=== PATIENT | female | born 1970 | race Caucasian/White ===

== ENCOUNTER 2017-02-24 12:00 | Emergency (ER) | payer BC ==
[2017-02-24] MEDS ORDERED: TETRACAINE 0.5% OU ONE (13:15)
[2017-02-24] MEDS ORDERED: FUL-GLO OP ONE (13:29)
[2017-02-24] MEDS ORDERED: MOTRIN PO ONE (13:29)
--- NOTE | 2017-02-24 14:21 | Emergency Department Report ---
ED Eye Problem HPI - General Chief complaint: Eye Problems Stated complaint: GLUE GOT INTO TO BOTH EYES, RED Time Seen by Provider: 02/24/17 13:07 Source: patient Mode of arrival: Ambulatory Limitations: Other - History of Present Illness Initial comments: 36-year-old -[place] female presents to the ED after trying to wash eyelashes of her eye lids states the shampoo got in both eyes and now it's burning. Patient's have decreased vision but she wears glasses which she didn' t bring with her to the ER. Patient denies any nausea, vomiting, headache, change in vision. - Related Data Home Medications Medication Instructions Recorded Confirmed Last Taken Aspirin [Adult Low Dose Aspirin EC] 81 mg PO DAILY 02/24/17 02/24/17 02/23/17 Gabapentin [Neurontin] 400 mg PO TID 02/24/17 02/24/17 02/23/17 Insulin Aspart [NovoLOG Flexpen] 12 units SC TIDWM 02/24/17 02/24/17 02/23/17 Insulin Glargine [Lantus] 45 units SQ QHS 02/24/17 02/24/17 02/23/17 Latanoprost 0.005% [Xalatan 0.005%] 1 drop OU HS 02/24/17 02/24/17 02/23/17 Lisinopril [Zestril TAB] 10 mg PO QDAY 02/24/17 02/24/17 02/23/17 Metformin HCl [Glucophage] 1,000 mg PO BID 02/24/17 02/24/17 02/23/17 Pravastatin Sodium [Pravastatin] 40 mg PO HS 02/24/17 02/24/17 02/23/17 Timolol 0.5% [Timoptic] 1 drop OS QAM 02/24/17 02/24/17 02/23/17 Ziprasidone [Geodon] 40 mg PO DAILY 02/24/17 02/24/17 02/23/17 clonazePAM [ Klonopin] 0.5 mg PO TID PRN 02/24/17 02/24/17 02/23/17 traMADol [Ultram 50 MG tab] 50 mg PO Q8H PRN 02/24/17 02/24/17 Unknown Previous Rx's Medication Instructions Recorded Last Taken Type Ciprofloxacin/Hydrocortisone 3 drop OT BID #1 bottle 02/24/17 Unknown Rx [Ciprofloxacin HC OTIC] Allergies Allergy/AdvReac Type Severity Reaction Status Date / Time Penicillins Allergy Anaphylaxis Verified 02/24/17 12:22 sulfamethoxazole Allergy Rash Verified 02/24/17 12:23 [From Bactrim] sumatriptan [From Imitrex] Allergy Anaphylaxis Verified 02/24/17 12:23 sumatriptan succinate Allergy Anaphylaxis Verified 02/24/17 12:23 [From Imitrex] trimethoprim [From Bactrim] Allergy Rash Verified 02/24/17 12:23 ED Review of Systems ROS: Stated complaint: GLUE GOT INTO TO BOTH EYES, RED Other details as noted in HPI Comment: All other systems reviewed and negative Eyes: eye pain Respiratory: no symptoms reported Cardiovascular: as per HPI ED Past Medical Hx - Past Medical History Previous Medical History?: Yes Hx Hypertension: Yes Hx Diabetes: Yes Hx Psychiatric Treatment: Yes Additional medical history: Glaucoma - Surgical History Past Surgical History?: Yes Additional Surgical History: cataracts 06/09/16. hysterectomy - Social History Smoking Status: Never Smoker Substance Use Type: None - Medications Home Medications: Home Medications Medication Instructions Recorded Confirmed Last Taken Type Aspirin [Adult Low Dose Aspirin EC] 81 mg PO DAILY 02/24/17 02/24/17 02/23/17 History Ciprofloxacin/Hydrocortisone 3 drop OT BID #1 bottle 02/24/17 Unknown Rx [Ciprofloxacin HC OTIC] Gabapentin [Neurontin] 400 mg PO TID 02/24/17 02/24/17 02/23/17 History Insulin Aspart [NovoLOG Flexpen] 12 units SC TIDWM 02/24/17 02/24/17 02/23/17 History Insulin Glargine [Lantus] 45 units SQ QHS 02/24/17 02/24/17 02/23/17 History Latanoprost 0.005% [Xalatan 0.005%] 1 drop OU 02/24/17 02/24/17 02/23/17 History Lisinopril [Zestril TAB] 10 mg PO QDAY 02/24/17 02/24/17 02/23/17 History Metformin HCl [Glucophage] 1,000 mg PO BID 02/24/17 02/24/17 02/23/17 History Pravastatin Sodium [Pravastatin] 40 mg PO HS 02/24/17 02/24/17 02/23/17 History Timolol 0.5% [Timoptic] 1 drop OS QAM 02/24/17 02/24/17 02/23/17 History Ziprasidone [Geodon] 40 mg PO DAILY 02/24/17 02/24/17 02/23/17 History clonazePAM [ Klonopin] 0.5 mg PO TID PRN 02/24/17 02/24/17 02/23/17 History traMADol [Ultram 50 MG tab] 50 mg PO Q8H PRN 02/24/17 02/24/17 Unknown History ED Physical Exam - General Limitations: No Limitations, Other General appearance: alert - Head Head exam: Present: atraumatic - Eye Eye exam: Present: conjunctival injection - ENT ENT exam: Present: normal exam - Neck Neck exam: Present: normal inspection - Respiratory Respiratory exam: Present: normal lung sounds bilaterally - Cardiovascular Cardiovascular Exam: Present: regular rate, normal rhythm - GI/Abdominal GI/Abdominal exam: Present: soft, normal bowel sounds - Skin Skin exam: Present: warm ED Course Vital Signs 02/24/17 02/24/17 12:23 13:38 Temperature 98.5 F Pulse Rate 107 H Respiratory 16 18 Rate Blood Pressure 168/97 O2 Sat by Pulse 98 Oximetry - Reevaluation(s) Reevaluation #1: 02/24/17 14:23 Eyes clean, flushed by SAMINA Hogue Gallardo lamp examination did not show any abrasion. Back to baseline we will DC home with antibiotics and follow-up with ophthalmology. Critical care attestation.: If time is entered above; I have spent that time in minutes in the direct care of this critically ill patient, excluding procedure time. ED Disposition Clinical Impression: Chemical conjunctivitis of both eyes Disposition: DC-01 TO HOME OR SELFCARE Is pt being admited?: No Does the pt Need Aspirin: No Condition: Stable Prescriptions: Ciprofloxacin/Hydrocortisone [Ciprofloxacin HC OTIC] 3 drop OT BID #1 bottle Referrals: PRIMARY CARE, [Primary Care Provider] - 3-5 Days HEIDE HOWARD MD [Staff Physician] - 3-5 Days
[2017-02-24 15:03] VITALS: BP 155/71
== END 2017-02-24 15:06 | disposition home or self-care (01) ==
LOC: ED 12:00
DX: H10.213 Acute toxic conjunctivitis, bilateral (principal); I10 Essential (primary) hypertension; E11.9 Type 2 diabetes mellitus without complications; H40.9 Unspecified glaucoma; Z88.0 Allergy status to penicillin; Z88.2 Allergy status to sulfonamides; Z79.82 Long term (current) use of aspirin
CPT/HCPCS: 99283

== ENCOUNTER 2017-04-18 10:00 | Emergency (ER) | payer BC ==
[2017-04-18 10:14] VITALS: BP 174/80
--- NOTE | 2017-04-18 10:14 | Emergency Department Report ---
Stated Complaint: RIGHT HIP PAIN Time Seen by Provider: 04/18/17 10:10 - HPI History of Present Illness: PT c/o R hip pain x 3 days. PT denies injury. PT with difficulty walking. - ROS Review of Systems: + arthralgia - rash - fever - Exam Physical Exam: PT is alert, flat affect ambulatory with limp in triage MSE screening note: Focused history and physical exam performed. Due to findings the following was ordered: plain films ED Disposition for MSE Condition: Stable
[2017-04-18] MEDS ORDERED: TORADOL IM ONE (10:34)
--- NOTE | 2017-04-18 10:37 | Emergency Department Report ---
ED Lower Extremity HPI - General Chief Complaint: Extremity Problem,Nontraumatic Stated Complaint: RIGHT HIP PAIN Time Seen by Provider: 04/18/17 10:10 Source: patient Mode of arrival: Ambulatory Limitations: No Limitations - History of Present Illness Initial Comments: Pt reports atraumatic R hip pain x 4 days. Denies fever, numbness, weakness, low back pain. Also reports a sore to her nose that has spread. MD Complaint: hip injury -: Gradual, days(s) (4) Injury: Hip: Right Type of Injury: other (none) Severity: moderate Severity scale (0 -10): 7 Improves With: rest Worsens With: movement Associated Symptoms: able to partially bear weight. denies: swelling, numbness , tingling - Related Data Home Medications Medication Instructions Recorded Confirmed Last Taken Aspirin [Adult Low Dose Aspirin EC] 81 mg PO DAILY 02/24/17 02/24/17 02/23/17 Gabapentin [Neurontin] 400 mg PO TID 02/24/17 02/24/17 02/23/17 Insulin Aspart [NovoLOG Flexpen] 12 units SC TIDWM 02/24/17 02/24/17 02/23/17 Insulin Glargine [Lantus] 45 units SQ QHS 02/24/17 02/24/17 02/23/17 Latanoprost 0.005% [Xalatan 0.005%] 1 drop OU HS 02/24/17 02/24/17 02/23/17 Lisinopril [Zestril TAB] 10 mg PO QDAY 02/24/17 02/24/17 02/23/17 Metformin HCl [Glucophage] 1,000 mg PO BID 02/24/17 02/24/17 02/23/17 Pravastatin Sodium [Pravastatin] 40 mg PO HS 02/24/17 02/24/17 02/23/17 Timolol 0.5% [Timoptic] 1 drop OS QAM 02/24/17 02/24/17 02/23/17 Ziprasidone [Geodon] 40 mg PO DAILY 02/24/17 02/24/17 02/23/17 clonazePAM [ Klonopin] 0.5 mg PO TID PRN 02/24/17 02/24/17 02/23/17 traMADol [Ultram 50 MG tab] 50 mg PO Q8H PRN 02/24/17 02/24/17 Unknown Previous Rx's Medication Instructions Recorded Last Taken Type Ciprofloxacin/Hydrocortisone 3 drop OT BID #1 bottle 02/24/17 Unknown Rx [Ciprofloxacin HC OTIC] Cephalexin [Keflex] 500 mg PO Q8H #21 cap 04/18/17 Unknown Rx Cyclobenzaprine [Flexeril] 10 mg PO TID PRN #15 tablet 04/18/17 Unknown Rx Mupirocin [Bactroban 2%] 1 applic TP TID #1 tube 04/18/17 Unknown Rx Naproxen [Naprosyn] 500 mg PO BID #20 tablet 04/18/17 Unknown Rx Allergies Allergy/AdvReac Type Severity Reaction Status Date / Time Penicillins Allergy Anaphylaxis Verified 02/24/17 12:22 sulfamethoxazole Allergy Rash Verified 02/24/17 12:23 [From Bactrim] sumatriptan [From Imitrex] Allergy Anaphylaxis Verified 02/24/17 12:23 sumatriptan succinate Allergy Anaphylaxis Verified 02/24/17 12:23 [From Imitrex] trimethoprim [From Bactrim] Allergy Rash Verified 02/24/17 12:23 ED Review of Systems ROS: Stated complaint: RIGHT HIP PAIN Other details as noted in HPI Comment: All other systems reviewed and negative Constitutional: denies: chills, fever Eyes: denies: eye pain, eye discharge, vision change ENT: denies: ear pain, throat pain Respiratory: denies: cough, shortness of breath, wheezing Cardiovascular: denies: chest pain, palpitations Endocrine: no symptoms reported Gastrointestinal: denies: abdominal pain, nausea, diarrhea Genitourinary: denies: urgency, dysuria, discharge Musculoskeletal: arthralgia. denies: back pain, joint swelling Skin: denies: rash, lesions Neurological: denies: headache, weakness, paresthesias Psychiatric: denies: anxiety, depression Hematological/Lymphatic: denies: easy bleeding, easy bruising ED Past Medical Hx - Past Medical History Previous Medical History?: Yes Hx Hypertension: Yes Hx Diabetes: Yes Hx Psychiatric Treatment: Yes (MDD, Schizophrenia) Additional medical history: Glaucoma - Surgical History Past Surgical History?: Yes Additional Surgical History: cataracts 06/09/16. L ear - Social History Smoking Status: Never Smoker Substance Use Type: None - Medications Home Medications: Home Medications Medication Instructions Recorded Confirmed Last Taken Type Aspirin [Adult Low Dose Aspirin EC] 81 mg PO DAILY 02/24/17 02/24/17 02/23/17 History Ciprofloxacin/Hydrocortisone 3 drop OT BID #1 bottle 02/24/17 Unknown Rx [Ciprofloxacin HC OTIC] Gabapentin [Neurontin] 400 mg PO TID 02/24/17 02/24/17 02/23/17 History Insulin Aspart [NovoLOG Flexpen] 12 units SC TIDWM 02/24/17 02/24/17 02/23/17 History Insulin Glargine [Lantus] 45 units SQ QHS 02/24/17 02/24/17 02/23/17 History Latanoprost 0.005% [Xalatan 0.005%] 1 drop OU HS 02/24/17 02/24/17 02/23/17 History Lisinopril [Zestril TAB] 10 mg PO QDAY 02/24/17 02/24/17 02/23/17 History Metformin HCl [Glucophage] 1,000 mg PO BID 02/24/17 02/24/17 02/23/17 History Pravastatin Sodium [Pravastatin] 40 mg PO HS 02/24/17 02/24/17 02/23/17 History Timolol 0.5% [Timoptic] 1 drop OS QAM 02/24/17 02/24/17 02/23/17 History Ziprasidone [Geodon] 40 mg PO DAILY 02/24/17 02/24/17 02/23/17 History clonazePAM [ Klonopin] 0.5 mg PO TID PRN 02/24/17 02/24/17 02/23/17 History traMADol [Ultram 50 MG tab] 50 mg PO Q8H PRN 02/24/17 02/24/17 Unknown History Cephalexin [Keflex] 500 mg PO Q8H #21 cap 04/18/17 Unknown Rx Cyclobenzaprine [Flexeril] 10 mg PO TID PRN #15 tablet 04/18/17 Unknown Rx Mupirocin [Bactroban 2%] 1 applic TP TID #1 tube 04/18/17 Unknown Rx Naproxen [Naprosyn] 500 mg PO BID #20 tablet 04/18/17 Unknown Rx ED Physical Exam - General Limitations: No Limitations General appearance: alert, in no apparent distress - Head Head exam: Present: atraumatic, normocephalic - Eye Eye exam: Present: normal appearance - ENT ENT exam: Present: mucous membranes moist, other (Pt has a scabbed lesion with mild erythema from the upper lip to nose. No drainage noted. ) - Neck Neck exam: Present: normal inspection - Respiratory Respiratory exam: Present: normal lung sounds bilaterally. Absent: respiratory distress - Cardiovascular Cardiovascular Exam: Present: regular rate, normal rhythm. Absent: systolic murmur, diastolic murmur, rubs, gallop - GI/Abdominal GI/Abdominal exam: Present: soft, normal bowel sounds. Absent: tenderness, guarding - Extremities Exam Extremities exam: Present: normal inspection, other (lateral R hip tenderness and painful but full ROM. Exam otherwise unremarkable with CMS intact. ) - Back Exam Back exam: Present: normal inspection. Absent: paraspinal tenderness, vertebral tenderness - Neurological Exam Neurological exam: Present: alert, oriented X3, reflexes normal. Absent: motor sensory deficit - Psychiatric Psychiatric exam: Present: normal affect, normal mood - Skin Skin exam: Present: warm, dry, intact, normal color. Absent: rash ED Course Vital Signs 04/18/17 10:10 Temperature 98.8 F Pulse Rate 107 H Respiratory 16 Rate Blood Pressure 174/80 O2 Sat by Pulse 99 Oximetry - Reevaluation(s) Reevaluation #1: 04/18/17 11:05 Pt is in NAD and stable for d/c. ED Lower Extremity MDM - Radiology Data Radiology results: report reviewed NAF - Medical Decision Making Pt presents with R hip pain, imaging negative, medicated with Toradol. Suspect that she has bursitis vs tendonitis and will treat and refer for follow up. Critical care attestation.: If time is entered above; I have spent that time in minutes in the direct care of this critically ill patient, excluding procedure time. ED Disposition Clinical Impression: Hip pain, right, Skin infection Disposition: DC-01 TO HOME OR SELFCARE Is pt being admited?: No Condition: Good Instructions: Arthralgia (ED), Hip Bursitis (ED) Prescriptions: Cephalexin [Keflex] 500 mg PO Q8H #21 cap Cyclobenzaprine [Flexeril] 10 mg PO TID PRN #15 tablet PRN Reason: Muscle Spasm Mupirocin [Bactroban 2%] 1 applic TP TID #1 tube Naproxen [Naprosyn] 500 mg PO BID #20 tablet Referrals: JARVIS REED MD [Primary Care Provider] - 3-5 Days WILFREDO WILKINS MD [Staff Physician] - 3-5 Days Time of Disposition: 11:07
--- NOTE | 2017-04-18 10:39 | XRay Report ---
RIGHT HIP, 2 views: History: Right hip pain. The bony architecture is intact without evidence of fracture or dislocation. No significant soft tissue abnormality is seen. IMPRESSION: Normal right hip.
== END 2017-04-18 11:19 | disposition home or self-care (01) ==
LOC: ED 10:00
DX: M25.551 Pain in right hip (principal); L08.9 Local infection of the skin and subcutaneous tissue, unspecified; I10 Essential (primary) hypertension; E11.9 Type 2 diabetes mellitus without complications; Z79.82 Long term (current) use of aspirin; Z79.4 Long term (current) use of insulin; Z88.1 Allergy status to other antibiotic agents; Z88.0 Allergy status to penicillin; Z88.2 Allergy status to sulfonamides; Z88.8 Allergy status to other drugs, medicaments and biological substances
CPT/HCPCS: 73502; 96372; 99283; J1885

== ENCOUNTER → 2018-01-31 | Outpatient (CLI) | payer MEDICARE ==
--- NOTE | 2018-02-01 10:20 | Mammography Report ---
BILATERAL DIGITAL SCREENING MAMMOGRAM with CAD: 01/31/18 08:37:00 CLINICAL: Routine screening. COMPARISON: None. A previous mammogram from [facility] is not available. FINDINGS: The breasts are heterogeneously dense, which may obscure small masses. 2 irregular circumscribed right upper outer mass require comparison with the prior mammogram or additional imaging. No architectural distortion or suspicious calcifications.The left breast is negative. IMPRESSION: Right upper outer masses requiring further evaluation. BI-RADS CATEGORY: 0 -- Additional Evaluation Required RECOMMENDATION: Comparison with a previous mammogram. We will attempt to obtain a prior mammogram for comparison. If we do not obtain a prior mammogram within 30 days, a revised report will be issued recommending a recall for additional imaging. Please be advised that the patient should not schedule an appointment for return until adequate time (at least 2 weeks) has passed for us to obtain the prior mammogram. ACR BI-RADS MAMMOGRAPHIC CODES: 0 = Needs additional imaging evaluation; 1 = Negative; 2 = Benign; 3 = Probably benign; 4 = Suspicious; 5 = Malignant; 6 = Known biopsy-proven malignancy COMMENT: 1. Dense breast tissue, i.e., adenosis, fibrocystic changes, etc., may obscure an underlying neoplasm. 2. Approximately 10% of cancers are not detected with mammography. 3. A negative mammography report should not delay biopsy if a clinically suspicious mass is present. COMMENT: Patient follow-up letters are generated via our [employer] application.
== END | disposition home or self-care (01) ==
LOC: MAMMO 08:37
PROVIDERS: ATTEND Internal Medicine
DX: Z12.31 Encounter for screening mammogram for malignant neoplasm of breast (principal); I10 Essential (primary) hypertension; E78.5 Hyperlipidemia, unspecified; E11.40 Type 2 diabetes mellitus with diabetic neuropathy, unspecified; Z88.0 Allergy status to penicillin; Z86.73 Personal history of transient ischemic attack (TIA), and cerebral infarction without residual deficits; Z88.2 Allergy status to sulfonamides; Z88.8 Allergy status to other drugs, medicaments and biological substances
CPT/HCPCS: 77067